=== PATIENT | female | born 1955 | race Caucasian/White ===

== ENCOUNTER 2018-03-05 15:52 | Emergency (ER) | payer MEDICARE, SELFPAY ==
[2018-03-05 16:20] VITALS: BP 140/66; PULSE 80; RESP 13; TEMP 36.4; O2SAT 98
--- NOTE | 2018-03-05 17:00 | PC.NURSE ---
Pt refused care, refused nursing initiated orders. Pt requesting to leave. discussed pt's wishes with provider. pts therapist not in room. Pt is alert and oriented. Refused to give therapist number. Provider aware. No new orders at this time. Pt walked out to waiting room without depart paperwork. Provider aware. no new orders at this time.
[2018-03-05 17:22] LABS: Appearance Urine UA CLEAR; Bacteria Urine None Seen; Bilirubin Urine UA NEGATIVE (NEGATIVE); Color Urine UA YELLOW; Glucose Urine UA NEGATIVE (Normal); Ketones Urine UA NEGATIVE (NEGATIVE); Leukocyte Esterase Urine UA NEGATIVE (NEGATIVE); Nitrite Urine UA Negative (Negative); Occult Blood Urine UA NEGATIVE (Negative); Protein Urine UA NEGATIVE (Negative); Specific Gravity Urine UA <=1.005 (1.000-1.035); Urobilinogen Urine UA 0.2 E.U./dL (0.2)
--- NOTE | 2018-03-05 17:27 | ED.PSYCH ---
HPI - Psych General Chief Complaint: Psychiatric Symptoms Stated Complaint: EVALUATION Time Seen by Provider: 03/05/18 17:03 Source: patient and other (Therapist) Mode of arrival: ambulatory Limitations: no limitations History of Present Illness HPI Narrative: Patient is a 62-year-old female who presents with her therapist. Therapist was concerned she is not caring for herself she is not eating or drinking. She initially thought of water was poisoned. They were able to give her still water which was working. At the patient states she denies thinking that she has been poison. She says she is not eating very much because she is not use to cooking for 1 person her daughter just left for college. She has lost a significant amount of weight over the last 6 months. She denies wanting to hurt herself. Her therapist is concerned all for her. No history of mental illness no prior all mental hospitalizations. Related Data Home Medications Medication Instructions Recorded Confirmed Calcium/Magnesium (#CALCIUM & 1 cap PO Q DAY #0 01/05/11 MAGNESIUM CHELATE 180 MG-90 MG) Coenzyme Q10 (#CO ENZYME Q-10) 50 mg PO Q DAY #0 01/05/11 Fish Oil (#FISH OIL CONCENTRATE) 1,000 mg PO Q DAY #0 01/05/11 CHOLECALCIFEROL (VITAMIN D) 2,000 iu PO Q DAY #0 01/20/11 CYANOCOBALAMIN (#VITAMIN B12) 2,000 mcg PO Q DAY #0 01/20/11 Previous Rx's Medication Instructions Recorded buspirone 20 mg PO BID #30 tab 04/19/17 glatiramer [Copaxone] 40 mg SQ THREE TIMES A WEEK #36 syr 04/24/17 Allergies Allergy/AdvReac Type Severity Reaction Status Date / Time iodine Allergy Mild TOPICAL Unverified 10/18/17 13:00 CAUSES RASH Review of Systems Review of Systems All systems reviewed & are unremarkable except as noted in HPI and below Constitutional Denies chills, Denies fever(s), Denies lethargy and Denies weakness Eyes Denies change in vision, Denies eye discharge, Denies irritation and Denies loss of vision ENT Ears, Nose, Mouth, and Throat: Denies change in voice, Denies neck pain and Denies sore throat Cardiovascular Denies chest pain, Denies irregular heart rhythm, Denies lightheadedness, Denies palpitations, Denies dyspnea, Denies dyspnea on exertion and Denies orthopnea Respiratory Denies cough, Denies dyspnea, Denies dyspnea on exertion and Denies wheezing Gastrointestinal Gastrointestinal: Denies abdominal pain, Denies change in bowel habits, Denies diarrhea, Denies nausea and Denies vomiting Genitourinary Denies hematuria, Denies flank pain, Denies urinary incontinence and Denies urinary urgency Comments: Had recent UTI Musculoskeletal Denies neck pain Integumentary/Breasts Denies pruritus, Denies erythema, Denies rash and Denies wounds Neurologic Denies loss of vision and Denies weakness Psychiatric Reports change in appetite, Reports paranoia and Reports hallucinations Endocrine Denies palpitations Allergic/Immunologic Denies wheezing PFSH Medical History Multiple sclerosis (Acute) Social History marital status: unmarried,single household members: none lives independently: Yes caregiver/support person: No Exam Initial Vital Signs Initial Vital Signs: Vital Signs Temperature 97.5 F L 03/05/18 16:20 Pulse Rate 80 03/05/18 16:20 Respiratory Rate 13 03/05/18 16:20 Blood Pressure 140/66 H 03/05/18 16:20 Pulse Oximetry 98 03/05/18 16:20 Const General: cooperative and healthy appearing Eyes General: appearance normal, both eyes and all related structures Neck Neck: normal visual inspection and full ROM Chest Chest: normal inspection of the chest Resp Effort & Inspection: normal respiratory effort and able to speak in complete sentences Cardio Pulses: normal peripheral pulses Skin General: no rashes or lesions noted and elasticity normal Neuro General: alert, awake and oriented x3 Extrem General: normal to inspection, full ROM and capillary refill normal Course Orders Ordered: ED Orders 03/05/18 17:03 Complete Blood Count AUTO DIFF Stat 03/05/18 17:10 Urinalysis and Microscopic Stat Vital Signs - 8 hr 03/05/18 16:20 Temperature 97.5 F L Pulse Rate 80 Respiratory Rate 13 Blood Pressure 140/66 H Pulse Oximetry 98 MDM - Psych Lab Data Lab Results 03/05/18 Range/Units 17:10 Urine Color Yellow Urine Appearance Clear Urine pH 5.0 (4.5-8.0) Ur Specific [place] <=1.005 (1.000-1.035) Urine Protein Negative (Negative) Urine Glucose (UA) Negative (Normal) g/dL Urine Ketones Negative (NEGATIVE) Urine Occult Blood Negative (Negative) Urine Nitrate Negative (Negative) Urine Bilirubin Negative (NEGATIVE) Urine Urobilinogen 0.2 (0.2) E.U./dL Ur Leukocyte Esterase Negative (NEGATIVE) Urine RBC 0-1/hpf (0-5/HPF) Urine WBC 0-1/hpf (0-5/HPF) Ur Squamous Epith Cells 0-1 /hpf Urine Bacteria None seen (None) Ur Culture Indicated? Cult not indicated Micro UA Comment Not Reportable MDM Narrative Medical decision making narrative: Long conversation with both patient and therapist in the room. Patient is here voluntarily for evaluation. We talked about blood work which initially was agreeable to. At this time patient seems to have capacity and does not meet involuntary criteria. Therapist states that she has been checking on the patient for the last 10 days and has seen significant decline is worried about her health. Patient adamantly declines. She says that she is eating and drinking and no longer feels dehydrated after the water. Therapist left to run some errands well evaluation and blood work were being done. Patient no longer wants blood work. She is wanting to leave she states she does not need to be here. She is eating and drinking at home and there is no reason for her to be here. She does not seem to be having severe disabling paranoia or hallucinations. The patient is clinically sober, free from distracting injury, appears to have intact insight, judgment and reason. Does not meet criteria for involuntary hospitalization. Patient has the capacity to make decisions. Discharge Plan Departure Patient Disposition: Left Against Medical Advice Clinical Impression: Feared complaint without diagnosis Discharge Date/Time: 03/05/18 17:51 Interventions: ED Discharge Assessment Last Done: 03/05/18 17:50 Instructions: DI for Malnutrition - Older Adults Activity Restrictions/Additional Instructions: *You have been diagnosed with feared complaint not found *Continue to take medications as directed *Follow up with your primary care provider in 2-3 days *Return to ER if you should have any new, worsening or concerning symptoms Prescriptions: No Action Coenzyme Q10 (#CO ENZYME Q-10) 50 mg PO Q DAY Qty: 0 RF: 0 Fish Oil (#FISH OIL CONCENTRATE) 1,000 mg PO Q DAY Qty: 0 RF: 0 Calcium/Magnesium (#CALCIUM & MAGNESIUM CHELATE 180 MG-90 MG) 1 cap PO Q DAY Qty: 0 RF: 0 CHOLECALCIFEROL (VITAMIN D) 2,000 iu PO Q DAY Qty: 0 RF: 0 CYANOCOBALAMIN (#VITAMIN B12) 2,000 mcg PO Q DAY Qty: 0 RF: 0 buspirone 10 MG tablet 20 mg PO BID Qty: 30 RF: 0 glatiramer [Copaxone] 40 MG/1 ML syringe 40 mg SQ THREE TIMES A WEEK Qty: 36 RF: 3 Stand Alone Forms: Against Medical Advice
[2018-03-05 17:28] LABS: Culture Indicated Urine Cult Not Indicated; RBC Urine 0-1/HPF (0-5/HPF); Squamous Epithelial Cell Urine 0-1 /HPF; WBC Urine 0-1/HPF (0-5/HPF)
--- NOTE | 2018-03-05 17:41 | PC.NURSE ---
shortly after triage and provider speaking with pt and herapist. pt agreeable to iv/labs/urine test. once in room, therapist in hallway with pt and now is gone, aware it would take a few hours to evaluate pt. once in room, pt not agreeable to iv/fluids/ states agreeable to labs, but not allowing to have labs drawn. left ED into waiting area to make calls, essentially stated you cannot keep me here provider aware.
--- NOTE | 2018-03-05 17:53 | PC.NURSE ---
left message for tamera rosado, pt therapist that brought her here. [phone]
--- NOTE | 2018-03-05 19:22 | PC.NURSE ---
tamera alonzo, returned to pick pt up, I told her pt not here, and left note for her to pick her up at [facility]. As I am speaking with her a friend of edvin's called tamera and told her that Edvin called her and stated she was at [facility] and for tamera to meet her. tamera asked for more mental health help/informatin. gave her the dcr for the [facility] phone #, she was very appreciative
== END 2018-03-05 17:51 | disposition left against medical advice (07) ==
PROVIDERS: Emergency Provider Emergency Medicine; Family Provider Nurse Practitioner; PCP Nurse Practitioner
DX: Z71.1 Person with feared health complaint in whom no diagnosis is made (principal)
CPT/HCPCS: 81001; 99283

== ENCOUNTER 2018-07-08 16:14 | Emergency (ER) | payer MEDICARE, SELFPAY ==
[2018-07-08 16:19] VITALS: BP 112/69; PULSE 59; RESP 16; O2SAT 99; BMI 21.9
--- NOTE | 2018-07-08 16:39 | ED_ITS ---
HPI - Neuro Symptoms/Deficit <Allen Norman DO - Last Filed: 07/08/18 20:21> General Chief Complaint: Neuro Symptoms/Deficit Stated Complaint: trouble with motor control, has MS Time Seen by Provider: 07/08/18 16:38 Source: patient and family Mode of arrival: wheelchair Limitations: no limitations History of Present Illness HPI Narrative: Patient is a 63-year-old female with a known history of multiple sclerosis. She is currently taking Copaxone for the MS but she also states that she has been very inconsistent taking this medication. She states that last night she started to ?feel off ?woke up this morning again feeling this way. He states the day went on she started having weakness and inability to move her lower extremities to the point where she was having balance issues progressing to the point where she could not lift her legs. She is brought into the emergency department by wheelchair with her friends. Denies any other symptoms. She states that it has been ?years? since her last MS flare. She states she has never been admitted to the hospital before because of multiple sclerosis. Related Data Home Medications Medication Instructions Recorded Confirmed Calcium/Magnesium (#CALCIUM & 1 cap PO Q DAY #0 01/05/11 MAGNESIUM CHELATE 180 MG-90 MG) Coenzyme Q10 (#CO ENZYME Q-10) 50 mg PO Q DAY #0 01/05/11 Fish Oil (#FISH OIL CONCENTRATE) 1,000 mg PO Q DAY #0 01/05/11 CHOLECALCIFEROL (VITAMIN D) 2,000 iu PO Q DAY #0 01/20/11 CYANOCOBALAMIN (#VITAMIN B12) 2,000 mcg PO Q DAY #0 01/20/11 Previous Rx's Medication Instructions Recorded buspirone 20 mg PO BID #30 tab 04/19/17 glatiramer [Copaxone] 40 mg SQ THREE TIMES A WEEK #36 syr 04/24/17 Allergies Allergy/AdvReac Type Severity Reaction Status Date / Time iodine Allergy Mild TOPICAL Verified 07/08/18 16:37 CAUSES RASH Review of Systems <Allen Norman DO - Last Filed: 07/08/18 20:21> Constitutional Denies fever(s) and Denies headache(s) Eyes Denies blurry vision and Denies diplopia ENT Ears, Nose, Mouth, and Throat: Denies vertigo, Denies dizziness, Denies headache (s) and Denies disequilibrium Cardiovascular Denies chest pain and Denies dyspnea Respiratory Denies dyspnea Gastrointestinal Gastrointestinal: Denies abdominal pain Genitourinary Denies dysuria Musculoskeletal Denies myalgias, Denies deformity, Denies arthralgias, Reports muscle weakness, Denies numbness and Denies tingling Integumentary/Breasts Denies rash Neurologic Denies behavioral changes, Denies vertigo, Denies dizziness, Denies headache(s) , Denies numbness, Denies radicular pain, Denies tingling and Denies disequilibrium Psychiatric Denies behavioral changes Hematologic/Lymphatic Denies easy bleeding and Denies easy bruising Exam <Allen Norman, DO - Last Filed: 07/08/18 20:21> Initial Vital Signs Initial Vital Signs: Vital Signs Pulse Rate 59 L 07/08/18 16:19 Respiratory Rate 16 07/08/18 16:19 Blood Pressure 112/69 07/08/18 16:19 Pulse Oximetry 99 07/08/18 16:19 Const General: cooperative, healthy appearing, comfortable, well developed, well groomed and No acute distress Orientation: alert, awake and oriented x3 HENMT Head: normal to inspection and normocephalic Eyes Pupils: PERRL EOM: EOM intact bilaterally Resp Effort & Inspection: normal respiratory effort Auscultation: clear to auscultation bilaterally Cardio Rate: regular rate Rhythm: regular rhythm Pulses: radial pulses present GI Inspection: non-distended Palpation: soft, No firm and No tender Skin Lesions: no lesions Rashes: no rashes Neuro General: alert, awake and oriented x3 Cranial Nerves: CN's II-XI intact bilaterally Cognition: normal cognition Speech: speech normal Other: 5/5 strength bilateral upper extremities. 0/5 strength bilateral lower extremities. Patient unable to cross her legs without significantly swinging her hips. Unable to plantar and dorsiflex. Unable to bend at the knees. Psych Appearance: grossly normal and well kempt <Miguel Hill, DO - Last Filed: 07/09/18 06:49> Initial Vital Signs Initial Vital Signs: Vital Signs Pulse Rate 59 L 07/08/18 16:19 Respiratory Rate 16 07/08/18 16:19 Blood Pressure 112/69 07/08/18 16:19 Pulse Oximetry 99 07/08/18 16:19 Course <Allen Norman, DO - Last Filed: 07/08/18 20:21> Orders Ordered: Discontinued Medications Methylprednisolone 1,000 mg/ (Sodium Chloride) 258 mls @ 258 mls/hr IV NOW ONE Stop: 07/08/18 18:00 Last Infusion: 07/08/18 19:40 Dose: 0 mls/hr Admin: 07/08/18 18:30 Dose: 258 mls/hr Vital Signs - 8 hr 07/09/18 04:06 07/09/18 06:06 Temperature 97.7 F Pulse Rate 60 60 Respiratory Rate 16 16 Blood Pressure [Right Arm] 118/50 L 118/58 L Pulse Oximetry 97 100 <Miguel Sergio, DO - Last Filed: 07/09/18 06:49> Orders Ordered: Discontinued Medications Methylprednisolone 1,000 mg/ (Sodium Chloride) 258 mls @ 258 mls/hr IV NOW ONE Stop: 07/08/18 18:00 Last Infusion: 07/08/18 19:40 Dose: 0 mls/hr Admin: 07/08/18 18:30 Dose: 258 mls/hr Reevaluation(s) Reevaluation #1: signout received from Dr. Norman. I've performed my own history and physical and find no significant changes. Patient was ambulating without difficulty up until yesterday and now has weakness in both legs to the point that she can hardly safely ambulate. She has no other focal findings and has normal head CT. She was treated for likely MS exacerbation, Initial attempt to admit here but hospitalist refused given lack of neurology back up. Call placed to [facility] but no neuro for 3 days. Next call to [facility] and hospitalist agrees with need for admission but recommends [facility] as it's closer. We 've called there, but they refuse as they are boarding multiple patients and suggest we contact [facility] in [place] again. This has been done and we are in the queue. Patient is becoming increasingly agitated at the length of stay and is considering leaving. It takes much effort to convince her to stay. She is now resting in her room trying to sleep. Reevaluation #2: update from [facility]. We are in a holding pattern until 0730 when we will get any update. Still have not spoken with hospitalist. Dr. Ochoa (hospitalist) is accepting provider. Patient can go to [facility] with 0700 pickup. Patient friend Olive notified ([phone]) Vital Signs - 8 hr 07/09/18 04:06 07/09/18 06:06 Temperature 97.7 F Pulse Rate 60 60 Respiratory Rate 16 16 Blood Pressure [Right Arm] 118/50 L 118/58 L Pulse Oximetry 97 100 MDM - Neuro Symptoms/Deficit <Allen Norman DO - Last Filed: 07/08/18 20:21> Lab Data Attestation: I reviewed the patient's lab results. Result diagrams: 07/08/18 16:40 07/08/18 16:40 Lab Results 07/08/18 07/08/18 Range/Units 16:40 16:40 WBC 6.9 (4.5-11.0) X10^3/uL RBC 5.13 (4.0-5.2) X10^6/uL Hgb 15.3 (12.0-16.0) g/dL Hct 45.7 (36-46) % MCV 89.0 (80-100) fL MCH 29.7 (26-34) PG MCHC 33.4 (30-36) % RDW 13.9 (11.6-14.8) % Plt Count 231 (150-400) X10^3/uL Neut % (Auto) 66.0 (50-75) % Lymph % (Auto) 26.4 (25-40) % [place] % (Auto) 5.2 (3-14) % Eos % (Auto) 1.4 L (2-4) % Baso % (Auto) 1.0 (0-2) % Neut # (Auto) 4500 (6460-1525) /uL Sodium 142 (137-145) mmol/L Potassium 3.8 (3.4-5.1) mmol/L Chloride 100 (98-107) mmol/L Carbon Dioxide 30 (22-32) mmol/L BUN 27 H (7-17) mg/dL Creatinine 0.80 (0.52-1.04) mg/dL Estimated GFR > 60.0 (>60) mL/min BUN/Creatinine Ratio 33.8 H (6-22) Glucose 95 (80-110) mg/dL Calcium 9.9 (8.4-10.2) mg/dL Imaging Data CT scan - head: Radiologist's impression: PROCEDURE: CT HEAD/BRAIN WO CON INDICATIONS: hx of MS cannot move legs TECHNIQUE: Noncontrast 4.5 mm thick angled axial sections acquired from the foramen magnum to the vertex, with coronal and sagittal reformats. For radiation dose reduction, the following was used: automated exposure control, adjustment of mA and/or kV according to patient size. COMPARISON: None. FINDINGS: Image quality: Excellent. CSF spaces: Basal cisterns are patent. No extra-axial fluid collections. Ventricles are normal in size and shape. Brain: No midline shift. No intracranial masses or hemorrhage. Leggett-white matter interface is normal. There is mild diffuse cerebral volume loss. There is moderate periventricular and subcortical white matter hypoattenuation. Calcified plaque of the intracranial vasculature noted. Skull and face: Calvarium and visualized facial bones are intact, without suspicious lesions. Sinuses: Visualized sinuses and mastoids are clear. IMPRESSION: Moderate periventricular and subcortical white matter hypoattenuation, which is nonspecific and can be seen with chronic microvascular ischemic changes versus white matter diseases such as multiple sclerosis. No CT evidence of acute intracranial hemorrhage or large territorial infarct. Dictated by: Eladio Ram M.D. on 07/08/2018 at 17:44 MDM Narrative Medical decision making narrative: Patient's neurologist is Dr. Mays at the MS clinic at [facility]. I discussed the case with our hospitalist who stated that since we did not have Neurology back up he was uncomfortable admitting the patient here at this hospital. Labs unremarkable. Head CT is unremarkable. I discussed the case with the hospitalist at [facility] who stated that [facility] is closer. A call was placed to the hospitalist at this facility. Care turned over to Dr. Hill [id number] to follow up with the transport. I did discuss the transfer with the patient who expressed understanding and agreement. Patient is stable for transfer. <Miguel Hill, DO - Last Filed: 07/09/18 06:49> Lab Data Lab Results 07/08/18 07/08/18 Range/Units 16:40 16:40 WBC 6.9 (4.5-11.0) X10^3/uL RBC 5.13 (4.0-5.2) X10^6/uL Hgb 15.3 (12.0-16.0) g/dL Hct 45.7 (36-46) % MCV 89.0 (80-100) fL MCH 29.7 (26-34) PG MCHC 33.4 (30-36) % RDW 13.9 (11.6-14.8) % Plt Count 231 (150-400) X10^3/uL Neut % (Auto) 66.0 (50-75) % Lymph % (Auto) 26.4 (25-40) % [place] % (Auto) 5.2 (3-14) % Eos % (Auto) 1.4 L (2-4) % Baso % (Auto) 1.0 (0-2) % Neut # (Auto) 4500 (8198-6124) /uL Sodium 142 (137-145) mmol/L Potassium 3.8 (3.4-5.1) mmol/L Chloride 100 (98-107) mmol/L Carbon Dioxide 30 (22-32) mmol/L BUN 27 H (7-17) mg/dL Creatinine 0.80 (0.52-1.04) mg/dL Estimated GFR > 60.0 (>60) mL/min BUN/Creatinine Ratio 33.8 H (6-22) Glucose 95 (80-110) mg/dL Calcium 9.9 (8.4-10.2) mg/dL Discharge Plan Departure Patient Disposition: [facility] Clinical Impression: Multiple sclerosis Prescriptions: No Action Coenzyme Q10 (#CO ENZYME Q-10) 50 mg PO Q DAY Qty: 0 RF: 0 Fish Oil (#FISH OIL CONCENTRATE) 1,000 mg PO Q DAY Qty: 0 RF: 0 Calcium/Magnesium (#CALCIUM & MAGNESIUM CHELATE 180 MG-90 MG) 1 cap PO Q DAY Qty: 0 RF: 0 CHOLECALCIFEROL (VITAMIN D) 2,000 iu PO Q DAY Qty: 0 RF: 0 CYANOCOBALAMIN (#VITAMIN B12) 2,000 mcg PO Q DAY Qty: 0 RF: 0 buspirone 10 MG tablet 20 mg PO BID Qty: 30 RF: 0 glatiramer [Copaxone] 40 MG/1 ML syringe 40 mg SQ THREE TIMES A WEEK Qty: 36 RF: 3
--- NOTE | 2018-07-08 16:53 | DI.CT.S_ITS ---
PROCEDURE: CT HEAD/BRAIN WO CON INDICATIONS: hx of MS cannot move legs TECHNIQUE: Noncontrast 4.5 mm thick angled axial sections acquired from the foramen magnum to the vertex, with coronal and sagittal reformats. For radiation dose reduction, the following was used: automated exposure control, adjustment of mA and/or kV according to patient size. COMPARISON: None. FINDINGS: Image quality: Excellent. CSF spaces: Basal cisterns are patent. No extra-axial fluid collections. Ventricles are normal in size and shape. Brain: No midline shift. No intracranial masses or hemorrhage. [place]-white matter interface is normal. There is mild diffuse cerebral volume loss. There is moderate periventricular and subcortical white matter hypoattenuation. Calcified plaque of the intracranial vasculature noted. Skull and face: Calvarium and visualized facial bones are intact, without suspicious lesions. Sinuses: Visualized sinuses and mastoids are clear. IMPRESSION: Moderate periventricular and subcortical white matter hypoattenuation, which is nonspecific and can be seen with chronic microvascular ischemic changes versus white matter diseases such as multiple sclerosis. No CT evidence of acute intracranial hemorrhage or large territorial infarct. Dictated by: Eladio Ram M.D. on 07/08/2018 at 17:44 Approved by: Eladio Ram M.D. on 07/08/2018 at 17:49
[2018-07-08 16:55] LABS: Add Manual Diff / Slide Review NO; Eosinophils Percent Auto 1.4 % (2-4); Hematocrit 45.7 % (36-46); Hemoglobin 15.3 g/dL (12.0-16.0); Lymphocytes Percent Auto 26.4 % (25-40); Mean Corpuscular HGB Conc 33.4 % (30-36); Mean Corpuscular Hemoglobin 29.7 PG (26-34); Monocytes Percent Auto 5.2 % (3-14); Neutrophils Absolute Auto 4500 /uL (1500-7000); Platelet Count 231 X10^3/uL (150-400); Red Blood Cell Count 5.13 X10^6/uL (4.0-5.2); Red Cell Distribution Width 13.9 % (11.6-14.8); White Blood Cell Count 6.9 X10^3/uL (4.5-11.0)
[2018-07-08 17:04] LABS: BUN Creatinine Ratio 33.8 (6-22); Blood Urea Nitrogen 27 mg/dL (7-17); Calcium 9.9 mg/dL (8.4-10.2); Carbon Dioxide 30 mmol/L (22-32); Chloride 100 mmol/L (98-107); Estimated Glomerular Filt Rate > 60.0 mL/min (>60); Glucose 95 mg/dL (80-110); HEMOLYSIS 16 (0-50); Potassium 3.8 mmol/L (3.4-5.1); Sodium 142 mmol/L (137-145)
[2018-07-08 17:15] VITALS: TEMP 36.8
[2018-07-08] MEDS: methylPREDNISolone 1,000 MG in SODIUM CHLORIDE 0.9% 250 ML 258 ML IV (18:30)
[2018-07-08 18:40] VITALS: BP 107/63; PULSE 62; RESP 14; O2SAT 100
--- NOTE | 2018-07-08 21:38 | PC.NURSE ---
Pt's friends left to catch ananda. Pt started with increased paranoia. Pt constantly asking where she is going, why is it taking so long, why does she have to go there. Pt stated feeling she was being sent to a mental health institution. Pt has own citalopram. Provider ok for patient to take own medication at this time. Staff continually redirecting patient, informing of wait and what location we are trying to transfer her to. Pt wondering in room. Called pt's friend at this time and pt on phone with friend. Friend trying to assist with pt and inform of transfer and why.
--- NOTE | 2018-07-08 22:51 | PC.NURSE ---
2229 Late entry-Pt continue to walking around the nursing lubin in slow gaits while holding the perez, Pt asked to return to pt's room due to privacy act, safety and the hospital's policy. 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 Pt attempting to leave the ER a few times and stopped by staff member each time either attempted to escort her back to bed and pt refuses. Zohra, pt's friend, called the ER to see the status of pt while pt walked out the ER. Melyssa informed that when pt returns back to ER will have her call back. Dr Hill spoke with the patient out in the lounge. Pt continue to leave ER and requested to call Taxi. Attempted to obtain AMA document paper, pt states I'm not signing the paper after the risk vs. benefit discussed with .
--- NOTE | 2018-07-08 23:00 | PC.NURSE ---
Pt returned to ER by [employer]'s taxi. [employer] officer called to find out pt's status after he received a call from her friend, Zohra. Informed the officer that pt is not incapacitate state and she made a decision to leave the ER.
--- NOTE | 2018-07-08 23:36 | PC.NURSE ---
Pt left ER once again w/o informing the staff and found in waiting area.
--- NOTE | 2018-07-09 01:43 | PC.NURSE ---
Pt returned to bed 6 escorted by hospital staff, registration, and states will rest in bed. NAD noted.
--- NOTE | 2018-07-09 03:36 | PC.NURSE ---
Late Entry 0-Provided sandwich and juice for nutritional support
[2018-07-09 04:06] VITALS: BP 118/50; PULSE 60; RESP 16; O2SAT 97
--- NOTE | 2018-07-09 04:07 | PC.NURSE ---
Pt arouse from sleep from house keeping staff. pt cooperative and in NAD at this time and reports feeling a little better. VS obtained and noted. Pt declines any needs at this time.
[2018-07-09 06:06] VITALS: BP 118/58; PULSE 60; RESP 16; TEMP 36.5; O2SAT 100
--- NOTE | 2018-07-09 06:06 | PC.NURSE ---
Pt updated to plan of care: to [facility]ulance. Pickup in approx 1 hour. Pt easily arousable, agreeable, without complaint.
== END 2018-07-09 07:05 | disposition short-term general hospital (02) ==
PROVIDERS: Emergency Medicine; Emergency Provider Emergency Medicine; PCP Nurse Practitioner
DX: G35 Multiple sclerosis (principal)
CPT/HCPCS: 36591; 70450; 80048; 85025; 96365; 99283; 99284; 99291; J2930